=== PATIENT | male | born 1965 | race Hispanic/Latino ===

== ENCOUNTER 2018-09-29 06:19 | Day surgery (SDC) | payer BC ==
[2018-09-27 08:46] LABS: BASOPHILS % (AUTO) 0.8 % (0.0-5.0); EOSINOPHILS % (AUTO) 1.1 % (0.0-8.0); HEMATOCRIT 44.4 % (42-54); LYMPHOCYTES % (AUTO) 28.8 % (21.0-51.0); MEAN CORPUSCULAR HEMOGLOBIN 28.7 pg (27.0-33.0); MEAN CORPUSCULAR HGB CONC 33.7 g/dL (32.0-36.0); MEAN CORPUSCULAR VOLUME 85.2 fL (79-99); MONOCYTES % (AUTO) 9.7 % (3.0-13.0); NEUTROPHILS % (AUTO) 59.6 % (40.0-77.0); PLATELET COUNT (AUTO) 297 K/uL (130-400); RED BLOOD CELL COUNT(AUTO) 5.21 MIL/uL (4.50-6.20); RED CELL DISTRIBUTION WIDTH 12.8 % (11.0-15.5); WHITE BLOOD COUNT (AUTO) 8.8 K/uL (4.8-10.8)
[2018-09-27 08:53] VITALS: BP 132/82
[2018-09-27 08:54] LABS: POTASSIUM 3.9 mmol/L (3.5-5.1)
[2018-09-29] VITALS (12 sets, daily range): BP systolic 99–121; BP diastolic 50–82
[~2018-09-29] VITALS: Ht 170.2 cm; Wt 107.7 kg
[~2018-09-29 06:19] MED LIST: CLINDAMYCIN 900 MG/D5% WATER 50 ML IV SCH; FAMO-136 PO; IRON18TA PO; LISI10TA7 PO; OMEP40CA37 PO; ROPI2TAB29 PO; TAMS0.4C32 PO
[2018-09-29] MEDS ORDERED: CEFAZOLIN SODIUM 1 GM VIAL ONE (07:01)
[2018-09-29] MEDS ORDERED: LACTATED RINGERS 1000ML 1,000 ML IV ONE (07:01)
[2018-09-29] MEDS ORDERED: CLINDAMYCIN 600 MG/D5% WATER 50 ML IV ONE (07:19)
[2018-09-29] MEDS ORDERED: LIDOCAINE PF 2% 5ML ABBOJECT ONE (07:25)
[2018-09-29] MEDS ORDERED: ONDANSETRON HCL 4 MG/2 ML VIAL ONE (07:25)
[2018-09-29] MEDS ORDERED: NEOSTIGMINE 5MG/5ML SYR IV ONE (07:25)
[2018-09-29] MEDS ORDERED: SUCCINYLCHOLINE 200MG/10ML SYR ONE (07:25)
[2018-09-29] MEDS ORDERED: ROCURONIUM 10MG/1ML SYR 10 MG/ML ML ONE (07:25)
[2018-09-29] MEDS ORDERED: DEXAMETHASONE SOD PHOSPHATE 10MG/ML 1ML VIAL ONE (07:25)
[2018-09-29] MEDS ORDERED: GLYCOPYRROLATE 1 MG/5 ML SYRINGE ONE (07:25)
[2018-09-29] MEDS ORDERED: MIDAZOLAM HCL 1 MG/ML 2ML VIAL ONE (07:25)
[2018-09-29] MEDS ORDERED: PROPOFOL 10 MG/ML 20ML VIAL IV ONE (07:25)
[2018-09-29] MEDS ORDERED: FENTANYL CITRATE PF 50 MCG/1 ML 5ML AMP IV ONE (07:26)
[2018-09-29] MEDS ORDERED: EPHEDRINE SULFATE 50 MG/ML AMPULE ONE (07:54)
[2018-09-29] MEDS ORDERED: CLINDAMYCIN 600 MG/D5% WATER 50 ML IV SCH (08:00)
[2018-09-29] MEDS ORDERED: MEPERIDINE-PF 25 MG/ML SYG ONE (09:12)
[2018-09-29] MEDS ORDERED: KETOROLAC TROMETHAMINE 30MG/ML ONE (09:12)
--- NOTE | 2018-09-29 10:25 | NUR ---
PT DISCHARGED HOME, TOLERATING FLUIDS WELL, VOIDED PRIOR TO DISCHARGE, AMBULATING TOLERATED, WITH LIGHT PRESSURE ON RIGHT KNEE, PT STATES THEY DID NOT BRING THEIR WALKER TO THE HOSPITAL, BUT HAS IT AT HOME AND IS COMFORTABLE USING IT. PT DENIES ANY NAUSEA, DIZZINESS, OR SEVER PAIN. PRESCRIPTION FOR PAIN MEDICATION GIVEN TO SPOUSE. ICE PACK APPLIED TO KNEE UPON ARRIVAL TO DAY PT, AND SENT WITH PT FOR HOME USE. DRESSING TO RIGHT KNEE REMAINS DRY, CLEAN, AND INTACT, WITHOUT ANY SIGNS OF BLEEDING OR DECREASED CIRCULATION TO LOWER EXTREMITY.
== END 2018-09-29 10:25 | disposition home or self-care (01) ==
LOC: DAH 06:19
PROVIDERS: ATTEND Orthopaedic Surgery
DX: M23.203 Derangement of unspecified medial meniscus due to old tear or injury, right knee (principal); M22.41 Chondromalacia patellae, right knee; I10 Essential (primary) hypertension; E66.01 Morbid (severe) obesity due to excess calories; K21.9 Gastro-esophageal reflux disease without esophagitis; Z98.890 Other specified postprocedural states; Z79.899 Other long term (current) drug therapy; M19.90 Unspecified osteoarthritis, unspecified site; Q24.5 Malformation of coronary vessels; M25.561 Pain in right knee
CPT/HCPCS: 29881; 36415; 80048; 85025; A4248; A4606; A4649 ×5; A4930; A6223; J0330; J1100; J1885; J2001; J2175; J2250; J2405; J2704; J2710; J3010; J3490 ×3; J7120 ×2; A4218; J0690

== ENCOUNTER 2021-06-24 06:57 | Day surgery (SDC) | payer BC ==
[2021-06-23 12:03] LABS: APPEARANCE,URINE Clear (CLEAR); BILIRUBIN,URINE Negative (NEGATIVE); COLOR,URINE Yellow (YELLOW); GLUCOSE, URINE (UA) Negative (NEGATIVE); KETONES,URINE Negative (NEGATIVE); LEUKOCYTE ESTERASE ,URINE Negative (NEGATIVE); NITRATE,URINE Negative (NEGATIVE); OCCULT BLOOD,URINE Negative (NEGATIVE); PROTEIN,URINE Negative (NEGATIVE); UROBILINOGEN,URINE 0.2 mg/dL (0.2-1.0)
[2021-06-23 12:39] LABS: BASOPHILS % (AUTO) 0.6 % (0.0-5.0); EOSINOPHILS % (AUTO) 1.3 % (0.0-8.0); HEMATOCRIT 42.3 % (42-54); LYMPHOCYTES % (AUTO) 32.2 % (21.0-51.0); MEAN CORPUSCULAR HEMOGLOBIN 27.9 pg (27.0-33.0); MEAN CORPUSCULAR HGB CONC 32.6 g/dL (32.0-36.0); MEAN CORPUSCULAR VOLUME 85.6 fL (79-99); MONOCYTES % (AUTO) 7.9 % (3.0-13.0); PLATELET COUNT (AUTO) 346 K/uL (130-400); RED BLOOD CELL COUNT(AUTO) 4.94 MIL/uL (4.50-6.20); RED CELL DISTRIBUTION WIDTH 12.9 % (11.0-15.5); WHITE BLOOD COUNT (AUTO) 10.6 K/uL (4.8-10.8)
[2021-06-23 12:51] LABS: CREATININE 1.1 mg/dL (0.5-1.5)
[2021-06-23 12:59] LABS: INR 0.97 (0.85-1.15); PROTHROMBIN TIME 10.6 SEC (9.6-11.6)
[2021-06-23 13:00] LABS: PARTIAL THROMBOPLASTIN TIME 28.5 SEC (26.3-35.5)
[2021-06-23 14:36] VITALS: BP 140/84
[~2021-06-24] VITALS: Ht 170.2 cm; Wt 106.7 kg
[2021-06-24] VITALS (11 sets, daily range): BP systolic 101–127; BP diastolic 64–82
[~2021-06-24 06:57] MED LIST changes: +AEC81 PO; -CLINDAMYCIN 900 MG/D5% WATER 50 ML IV SCH; +ESCI-8 PO; +FLUT16H NASAL; +GABA-529 PO; +HYDR12.54 PO; +IBUP-2077 PO; -IRON18TA PO; -LISI10TA7 PO; +LISI20TA24 PO; +METO-391 PO; +MIRA25TA PO; +OMEP40CA21 PO; -OMEP40CA37 PO
[2021-06-24] MEDS ORDERED: SODIUM BICARB 50MEQ 50ML VIAL 50 ML ONE (08:17)
[2021-06-24] MEDS ORDERED: NICARDIPINE 25MG INJ IV ONE (08:17)
[2021-06-24] MEDS ORDERED: NITROGLYCERIN 2 MG VIAL IV ONE (08:17)
[2021-06-24] MEDS ORDERED: BIVALIRUDIN 250 MG/VIAL IV ONE (08:17)
[2021-06-24] MEDS ORDERED: HEPARIN 10,000 UNIT/10ML (1,000 UNIT/ML) VIAL ONE (08:17)
[2021-06-24] MEDS ORDERED: LIDOCAINE HCL 400MG/20ML VIAL ONE (08:18)
[2021-06-24] MEDS ORDERED: IOHEXOL-350 50ML VIAL IV ONE (08:18)
[2021-06-24] MEDS ORDERED: IOHEXOL 350 MG/ML 100ML INFUS..BTL IV ONE (08:18)
[2021-06-24] MEDS ORDERED: MEPERIDINE-PF 25 MG/ML SYG ONE ×3 (09:24→10:10)
[2021-06-24] MEDS ORDERED: MIDAZOLAM HCL 1 MG/ML 2ML VIAL ONE (09:25)
[2021-06-24] MEDS ORDERED: 0.9%NACL 1000ML 1,000 ML IV ONE (09:30)
[2021-06-24] MEDS ORDERED: 0.9%NACL 1000ML 1,000 ML IV SCH (11:00)
== END 2021-06-24 15:05 | disposition home or self-care (01) ==
LOC: DAH 06:57
PROVIDERS: ATTEND Internal Medicine Cardiovascular Disease
DX: R94.39 Abnormal result of other cardiovascular function study (principal); R00.2 Palpitations; I11.0 Hypertensive heart disease with heart failure; I50.42 Chronic combined systolic (congestive) and diastolic (congestive) heart failure; G47.33 Obstructive sleep apnea (adult) (pediatric); F32.9 Major depressive disorder, single episode, unspecified; I25.2 Old myocardial infarction; E66.3 Overweight; I42.9 Cardiomyopathy, unspecified; Z88.0 Allergy status to penicillin; Z79.01 Long term (current) use of anticoagulants; Z79.82 Long term (current) use of aspirin; Z79.899 Other long term (current) drug therapy; Z82.49 Family history of ischemic heart disease and other diseases of the circulatory system; Z85.6 Personal history of leukemia; Z68.35 Body mass index [BMI] 35.0-35.9, adult
CPT/HCPCS: 36415; 71045; 80048; 81003; 85025; 85610; 85730; 93005; 93458; A4215; A4216; A4221; A4222; A4223 ×3; A4606; A4663; C1769; C1894; J1644 ×2; J2175 ×3; J2250; J3490 ×4; J7030; Q9965; Q9967 ×2; 99156; 99157; J0583